=== PATIENT | female | born 1965 | race Caucasian/White ===

== ENCOUNTER 2017-05-12 08:07 | Day surgery (SDC) | payer OTHER ==
[~2017-05-12] VITALS: Ht 154.9 cm; Wt 57.1 kg
[~2017-05-12 08:07] MED LIST: ALBU90OI61 INH; BENZ100A PO; BUPR150T2; CLON.5 PO; ESTR2 PO; GUAI120S1 PO; HYDACE5; IBUP800 PO; MIRT15 PO; OXYACE5T PO; PENVK500 PO; RXOXYACE PO; RXPENVK250 PO; Zofran Odt4 MG SL
[2018-03-08] MEDS ORDERED: Zantac150 MG PO (06:13)
[2018-03-08] MEDS ORDERED: Percocet 5-3251 EACH PO (10:42)
== END 2017-05-12 10:32 | disposition home or self-care (01) ==
LOC: ORSCMMR 08:07
PROVIDERS: Internal Medicine Gastroenterology
PROC: 0DB48ZX Excision of Esophagogastric Junction, Via Natural or Artificial Opening Endoscopic, Diagnostic (ICD-10-PCS; principal; 2017-05-12 09:30)
PROC: 0DB68ZX Excision of Stomach, Via Natural or Artificial Opening Endoscopic, Diagnostic (ICD-10-PCS; principal; 2017-05-12 09:30)
DX: R93.5 Abnormal findings on diagnostic imaging of other abdominal regions, including retroperitoneum (principal); K44.9 Diaphragmatic hernia without obstruction or gangrene; K29.70 Gastritis, unspecified, without bleeding; R10.9 Unspecified abdominal pain; F41.8 Other specified anxiety disorders; F17.210 Nicotine dependence, cigarettes, uncomplicated; Z79.899 Other long term (current) drug therapy
CPT/HCPCS: 88305; 88341; 88342; J7120

== ENCOUNTER 2018-11-26 11:00 | Emergency (ER) | payer OTHER ==
[~2018-11-26] VITALS: Ht 154.9 cm; Wt 52.2 kg
[~2018-11-26 11:00] MED LIST changes: +Percocet 5-3251 EACH PO; +Zantac150 MG PO
[2018-11-26 12:33] LABS: BASOPHILS ABSOLUTE AUTO 0.02 K/mm3 (0.00-0.23); BASOPHILS PERCENT AUTO 0 % (0-2); EOSINOPHILS ABSOLUTE AUTO 0.02 K/mm3 (0.00-0.68); EOSINOPHILS PERCENT AUTO 0 % (0-6); Hematocrit 46.2 % (33.0-51.0); Hemoglobin 16.4 g/dL (11.5-16.0); IMMATURE GRAN ABSOLUTE AUTO 0.02 K/mm3 (0.00-0.10); IMMATURE GRAN PERCENT AUTO 0 % (0-1); LYMPHOCYTES ABSOLUTE AUTO 1.25 K/mm3 (0.84-5.20); LYMPHOCYTES PERCENT AUTO 20 % (21-46); MONOCYTES ABSOLUTE AUTO 0.61 K/mm3 (0.16-1.47); MONOCYTES PERCENT AUTO 10 % (4-13); Mean Corpuscular HGB 35.7 pg (26.0-34.0); Mean Corpuscular HGB Conc 35.5 g/dL (31.5-36.5); Mean Corpuscular Volume 101 fL (80-100); Mean Platelet Volume 10.7 fL (9.1-12.4); NEUTROPHILS ABSOLUTE AUTO 4.44 K/mm3 (1.96-9.15); NEUTROPHILS PERCENT AUTO 70 % (41-73); Platelet Count 228 K/mm3 (150-400); RDW Coefficient Variation 13.3 % (11.7-14.2); RDW Standard Deviation 49.8 fL (35.1-46.3); Red Blood Cell Count 4.59 M/mm3 (3.80-5.20); White Blood Cell Count 6.36 K/mm3 (4.00-11.30)
[2018-11-26 13:05] LABS: Alanine Aminotransfer (ALT/SGP 51 U/L (12-78); Albumin, Blood 3.9 g/dL (3.4-5.0); Alk Phos 108 U/L (50-136); Anion Gap 5 mmol/L (6-16); Aspartate Aminotrans (AST/SGOT 41 U/L (12-37); Bilirubin, Total 0.5 mg/dL (0.1-1.0); Blood Urea Nitrogen 7 mg/dL (8-24); CO2, Blood 28 mmol/L (21-32); Calcium, Blood 9.6 mg/dL (8.5-10.1); Chloride, Blood 100 mmol/L (98-108); Creatinine, Blood 0.37 mg/dL (0.40-1.00); Globulin, Blood 3.8 g/dL (2.2-4.0); Glomerular Filtration Rate >60 (60-); Glucose, Blood 89 mg/dL (70-99); Potassium, Blood 4.1 mmol/L (3.5-5.5); Sodium, Blood 133 mmol/L (136-145); Total Protein, Blood 7.7 g/dL (6.4-8.2); Troponin I <0.015 ng/mL (0.000-0.040)
[2018-11-26] MEDS ORDERED: IBUP400 PO (14:29)
[2018-11-26] MEDS ORDERED: CYCL10 PO (14:29)
== END 2018-11-26 15:31 | disposition home or self-care (01) ==
LOC: ER 11:00
PROVIDERS: Physician Assistant
DX: S82.035A Nondisplaced transverse fracture of left patella, initial encounter for closed fracture (principal); F41.9 Anxiety disorder, unspecified; F32.9 Major depressive disorder, single episode, unspecified; Z79.899 Other long term (current) drug therapy; W19.XXXA Unspecified fall, initial encounter
CPT/HCPCS: 29505; 36415; 73564; 80053; 84484; 85025; 90471; 90714; 93005; 93010; 93225; 93226; 99284-25; A9270-GY

== ENCOUNTER 2019-02-15 08:40 | Day surgery (SDC) | payer OTHER ==
[~2019-02-15 08:40] MED LIST changes: +CYCL10 PO; +IBUP400 PO
[2019-03-22] MEDS ORDERED: ALBU90OI (12:56)
== END 2019-02-15 22:55 | disposition home or self-care (01) ==
LOC: MOI US 08:40 → MOI MAM 09:15 → MOI US 22:55
DX: C50.912 Malignant neoplasm of unspecified site of left female breast (principal); Z17.0 Estrogen receptor positive status [ER+]
CPT/HCPCS: 19083; 77065; 88305; 88360; A4648

== ENCOUNTER 2019-03-29 07:25 | Day surgery (SDC) | payer OTHER ==
[~2019-03-29 07:25] MED LIST changes: +ALBU90OI
== END 2019-03-29 22:57 | disposition home or self-care (01) ==
LOC: MOI US 07:25
DX: C50.812 Malignant neoplasm of overlapping sites of left female breast (principal)
CPT/HCPCS: 19285; 77065

== ENCOUNTER 2019-04-02 07:09 | Day surgery (SDC) | payer OTHER ==
[~2019-04-02] VITALS: Ht 154.9 cm; Wt 50.9 kg
--- NOTE | 2019-04-02 11:17 | NUR ---
04/02/19 1117 Dany Mcelroy FROM XRAY CALLED STATING THAT DR. VITALE VERIFIED CLIP IS IN SPECIMEN.
== END 2019-04-02 12:57 | disposition home or self-care (01) ==
LOC: ORSCSDS 07:09 → NM 09:30 → ORSCSDS 10:30
PROVIDERS: Surgery
PROC: 07B60ZX Excision of Left Axillary Lymphatic, Open Approach, Diagnostic (ICD-10-PCS; principal; 2019-04-02 10:30)
PROC: 0HBU0ZZ Excision of Left Breast, Open Approach (ICD-10-PCS; principal; 2019-04-02 10:30)
DX: C50.812 Malignant neoplasm of overlapping sites of left female breast (principal); Z17.0 Estrogen receptor positive status [ER+]; D36.0 Benign neoplasm of lymph nodes; J44.9 Chronic obstructive pulmonary disease, unspecified; F17.210 Nicotine dependence, cigarettes, uncomplicated; Z79.899 Other long term (current) drug therapy
CPT/HCPCS: 38792; 76098; 88305; 88307; 88342; A9520; J0330; J0690; J1100; J2250; J2370; J2405; J2704; J3010; J7120; Q9968

== ENCOUNTER 2020-12-19 15:05 | Inpatient (IN) | payer OTHER ==
[~2020-12-19] VITALS: Ht 154.9 cm; Wt 51.1 kg
[2020-12-19] MEDS ORDERED: PARO10 PO (15:32)
[2020-12-19 15:47] LABS: BASOPHILS ABSOLUTE AUTO 0.05 K/mm3 (0.00-0.23); BASOPHILS PERCENT AUTO 0 % (0-2); EOSINOPHILS ABSOLUTE AUTO 0.02 K/mm3 (0.00-0.68); EOSINOPHILS PERCENT AUTO 0 % (0-6); Hematocrit 43.6 % (33.0-51.0); Hemoglobin 15.8 g/dL (11.5-16.0); IMMATURE GRAN ABSOLUTE AUTO 0.14 K/mm3 (0.00-0.10); IMMATURE GRAN PERCENT AUTO 1 % (0-1); LYMPHOCYTES ABSOLUTE AUTO 1.46 K/mm3 (0.84-5.20); LYMPHOCYTES PERCENT AUTO 11 % (21-46); MONOCYTES ABSOLUTE AUTO 1.21 K/mm3 (0.16-1.47); MONOCYTES PERCENT AUTO 9 % (4-13); Mean Corpuscular HGB 35.4 pg (26.0-34.0); Mean Corpuscular HGB Conc 36.2 g/dL (31.5-36.5); Mean Corpuscular Volume 98 fL (80-100); Mean Platelet Volume 10.2 fL (9.1-12.4); NEUTROPHILS ABSOLUTE AUTO 10.58 K/mm3 (1.96-9.15); NEUTROPHILS PERCENT AUTO 79 % (41-73); Platelet Count 294 K/mm3 (150-400); RDW Coefficient Variation 13.9 % (11.7-14.2); RDW Standard Deviation 50.4 fL (35.1-46.3); Red Blood Cell Count 4.46 M/mm3 (3.80-5.20); White Blood Cell Count 13.46 K/mm3 (4.00-11.30)
[2020-12-19 16:02] LABS: Alanine Aminotransfer (ALT/SGP 103 U/L (12-78); Albumin, Blood 3.7 g/dL (3.4-5.0); Alk Phos 107 U/L (50-136); Anion Gap 7 mmol/L (6-16); Aspartate Aminotrans (AST/SGOT 138 U/L (12-37); Bilirubin, Total 0.4 mg/dL (0.1-1.0); Blood Urea Nitrogen 5 mg/dL (8-24); Bun/Creatinine Ratio 9.1 (12.0-20.0); CO2, Blood 28 mmol/L (21-32); Calcium, Blood 8.7 mg/dL (8.5-10.1); Chloride, Blood 98 mmol/L (98-108); Creatinine, Blood 0.55 mg/dL (0.40-1.00); Globulin, Blood 3.6 g/dL (2.2-4.0); Glomerular Filtration Rate >60 (60-); Glucose, Blood 97 mg/dL (70-99); Potassium, Blood 3.9 mmol/L (3.5-5.5); Sodium, Blood 133 mmol/L (136-145); Total Protein, Blood 7.3 g/dL (6.4-8.2)
[2020-12-19] MEDS ORDERED: LETR2.5 PO (19:10)
[2020-12-19 19:57] LABS: SARS-Cov-2 (COVID-19) PCR, MMC NEGATIVE (NEGATIVE)
[2020-12-19 20:02] LABS: Ethanol (Alcohol), Blood, Med 207 mg/dL
[2020-12-19 21:17] LABS: International Normalized Ratio 0.91; Prothrombin Time Results 9.9 Sec (9.7-11.5)
[2020-12-20 03:09] LABS: Source, Urine Clean Catch
[2020-12-20 03:13] LABS: Bilirubin, Urine Neg (Neg); Blood, Urine 1+ (Neg); Glucose Qualitative, Urine Neg (Neg); Ketones, Urine 2+ (Neg); Leukocyte Esterase, Urine 1+ (Neg); Nitrite, Urine Neg (Neg); Protein, Urine 1+ (Neg); Urobilinogen, Urine NORM (Normal); pH, Urine 6.5 (5.0-8.0)
[2020-12-20 03:28] LABS: U Amphetamine Screen Not Detected; U Barbituate Screen Not Detected; U Benzodiazapine Screen Not Detected; U Buprenorphine Screen Not Detected; U Cannabinoids Screen DETECTED; U Cocaine Screen Not Detected; U Methadone Screen Not Detected; U Methamphetamine Screen Not Detected; U Opiates Screen DETECTED; U Oxycodone Screen Not Detected; U Phencyclidine Screen Not Detected; U Propoxyphene Screen Not Detected
[2020-12-20 03:31] LABS: Appearance, Urine Clear (Clear); Bacteria Rare /hpf; Color, Urine Yellow (P-Yellow); Red Blood Cells, Urine Rare /hpf (0-2); Squamous Epithelial Cells Few /hpf (Few); White Blood Cells, Urine 0-2 /hpf (0-5)
[2020-12-20 04:09] LABS: Hematocrit 44.3 % (33.0-51.0); Hemoglobin 15.8 g/dL (11.5-16.0); Mean Corpuscular HGB 35.3 pg (26.0-34.0); Mean Corpuscular HGB Conc 35.7 g/dL (31.5-36.5); Mean Corpuscular Volume 99 fL (80-100); Mean Platelet Volume 10.5 fL (9.1-12.4); Platelet Count 284 K/mm3 (150-400); RDW Standard Deviation 51.3 fL (35.1-46.3); Red Blood Cell Count 4.48 M/mm3 (3.80-5.20); White Blood Cell Count 8.49 K/mm3 (4.00-11.30)
[2020-12-20 04:28] LABS: Anion Gap 7 mmol/L (6-16); Blood Urea Nitrogen 6 mg/dL (8-24); Bun/Creatinine Ratio 12.9 (12.0-20.0); CO2, Blood 28 mmol/L (21-32); Calcium, Blood 8.5 mg/dL (8.5-10.1); Chloride, Blood 100 mmol/L (98-108); Creatinine, Blood 0.47 mg/dL (0.40-1.00); Glomerular Filtration Rate >60 (60-); Glucose, Blood 96 mg/dL (70-99); Magnesium, Blood 2.4 mg/dL (1.6-2.4); Potassium, Blood 4.1 mmol/L (3.5-5.5); Sodium, Blood 135 mmol/L (136-145)
--- NOTE | 2020-12-20 07:16 | NUR ---
PT IS A/OX3. ABLE TO MAKE HIS NEEDS KNOWN. PLEASANT AND COOPERATIVE WITH STAFF AND HER CARE. ARRIVED TO FLOOR AT 199912/19/20. PT ORIENTED TO STAFF, ROOM, CALL LIGHT. TELE: SR. CT SET TO LIS, PLACED ON FLOOR-SECURED W/TAPE. NO OUTPUT. BUBBLING. CT INSERTION SITE INTACT WITH MINIMAL BLOODY DRNG. OXYGEN PER NC, AT 5L; SHE DID SAT 87-88% ON 2L, SO BUMPED UP TO 5L.
--- NOTE | 2020-12-21 07:03 | NUR ---
PT IS A/OX4. ABLE TO MAKE HER NEEDS KNOWN. PLEASANT AND COOPERATIVE WITH STAFF AND HER CARE. TELE: SR. CBS, BUT DIMINISHED. CHEST TUBE TO LOW SUCTION. BUBBLES. CANNISTER SECURED W/TAPE TO FLOOR. NO DRNG IN CANNISTER. INSERTION SITE TO LEFT CHEST, ABOVE BREAST. INSERTION SITE COVERED W/CLEAR DRSG AND IS CDI. PIV TO LAC PATENT. USES BEDPAN. NO GI UPSET.
--- NOTE | 2020-12-22 18:38 | NUR ---
SHIFT SUMMARY PATIENT AOX4 ADMITTED WITH MULT RIB FX AND PNEUMOTHORAX. VSS; PATIENT WEANED DOWN TO 0.5L O2 BY END OF SHIFT; PATIENT UP WITH THEAPY ON SHIFT, GOOD U/O. PAIN CONTROLLED WITH IV DILAUDID, OXY AND TORADOL.
--- NOTE | 2020-12-23 04:48 | NUR ---
SHIFT SUMMARY PT AOX4. PT REPORTS R SIDE NECK (MUSCLE) PAIN AND H/A AT THE BEGINNING OF THE SHIFT. OFFERED K-PAD FOR HER NECK AND PAIN IMPROVED. PT REPORTS PAIN MEDS DOES NOT HELP WITH NECK PAIN. PT ALSO REPORTS L SIDE RIB PAIN BUT HAS BEEN TOLERABLE, PAIN LEVEL 7-10/10 PAIN LEVEL. PAIN MANAGED WITH TORADOL X1 (HS), 10MG OXY AND TYLENOL. VSS. VOIDING WITHOUT DIFFICULTY. PT DENIES CP, SOB. WEAN OFF O2. SATURATING AT 94% AT ROOM AIR. PT TOLERATING PO INTAKE. DENIES NAUSEA AND VOMITING. CALL LIGHT WITHIN REACH. WILL PROVIDE REPORT TO ONCOMING NURSE.
[2020-12-23] MEDS ORDERED: OXYC10TA19 PO (11:09)
--- NOTE | 2020-12-23 12:19 | NUR ---
SHIFT SUMMARY PT A&OX4, VSS, ADRI PO, VOIDING WELL, AMBULATING TO BRP/HALLWAY, UP TO CHAIR, DEEP BREATHING AND I.S. EDU & ENC/DEMONSTRATED-EDU TO CONTINUE AT HOME. LEFT FLOOR VIA WC WITH NG TO GO HOME WITH , WITH ALL PERSONAL POSSESSIONS INCLUDING DC PACKET AND NARC SCRIPT. IV DC'D.
== END 2020-12-23 12:30 | disposition home or self-care (01) | DRG 200 ==
LOC: ER 15:05 → SURS 18:41
PROVIDERS: Emergency Medicine; Physician Assistant; ADMIT Surgery
PROC: 0W9B30Z Drainage of Left Pleural Cavity with Drainage Device, Percutaneous Approach (ICD-10-PCS; principal; 2020-12-19)
DX: S27.0XXA Traumatic pneumothorax, initial encounter (principal); S22.42XA Multiple fractures of ribs, left side, initial encounter for closed fracture; W14.XXXA Fall from tree, initial encounter; Z79.899 Other long term (current) drug therapy; F17.210 Nicotine dependence, cigarettes, uncomplicated; Z20.822 Contact with and (suspected) exposure to COVID-19; Z98.890 Other specified postprocedural states; Z90.12 Acquired absence of left breast and nipple; Z85.3 Personal history of malignant neoplasm of breast; Z85.810 Personal history of malignant neoplasm of tongue; Z90.710 Acquired absence of both cervix and uterus; Z90.721 Acquired absence of ovaries, unilateral
CPT/HCPCS: 32551; 36415; 70450; 71045; 71046; 71260; 74177; 80048; 80053; 81001; 83690; 83735; 85025; 85027; 85610; 90471; 90714; 94762; 96374-59; 96375-59; 96376-59; 97110; 97116; 97116-CQ; 97162; 97167; 97530; 97530-CQ; 97535; 99285-25; A9270; G0480; J1170; J1650; J1885; J2405; J3010; Q9967; U0004

== ENCOUNTER 2021-06-29 17:25 | Emergency (ER) | payer OTHER ==
[~2021-06-29] VITALS: Ht 154.9 cm; Wt 50.4 kg
[~2021-06-29 17:25] MED LIST changes: +LETR2.5 PO; +OXYC10TA19 PO; +PARO10 PO
== END 2021-06-29 18:50 | disposition home or self-care (01) ==
LOC: ER 17:25
DX: S52.501A Unspecified fracture of the lower end of right radius, initial encounter for closed fracture (principal); S52.601A Unspecified fracture of lower end of right ulna, initial encounter for closed fracture; F17.210 Nicotine dependence, cigarettes, uncomplicated; W01.0XXA Fall on same level from slipping, tripping and stumbling without subsequent striking against object, initial encounter
CPT/HCPCS: 29125; 73110; 99283-25; A9270

== ENCOUNTER 2022-11-09 23:30 | Emergency (ER) | payer OTHER ==
[~2022-11-09] VITALS: Ht 154.9 cm; Wt 54.4 kg
[2022-11-10] VITALS: BP 120/91
== END 2022-11-10 00:25 | disposition home or self-care (01) ==
LOC: ER 23:30
DX: S80.812A Abrasion, left lower leg, initial encounter (principal); S80.811A Abrasion, right lower leg, initial encounter; F17.210 Nicotine dependence, cigarettes, uncomplicated; W19.XXXA Unspecified fall, initial encounter
CPT/HCPCS: 99282

== ENCOUNTER → 2022-12-31 | Outpatient (CLI) | payer OTHER ==
[2022-12-31 13:08] LABS: Source, Urine Clean Catch
[2022-12-31 15:43] LABS: Appearance, Urine Clear (Clear); Bilirubin, Urine Neg (Neg); Blood, Urine Neg (Neg); Glucose Qualitative, Urine Neg (Neg); Ketones, Urine Neg (Neg); Leukocyte Esterase, Urine Neg (Neg); Nitrite, Urine Neg (Neg); Protein, Urine Neg (Neg); Urobilinogen, Urine NORM (Normal)
[2022-12-31 16:12] LABS: Color, Urine Pale Yellow (P-Yellow)
== END | disposition home or self-care (01) ==
LOC: LAB 11:15 → LAB SHORT 11:15
PROVIDERS: Internal Medicine Hematology & Oncology
DX: R30.0 Dysuria (principal)
CPT/HCPCS: 81003

== ENCOUNTER → 2023-07-08 | Outpatient (CLI) | payer OTHER | END | disposition home or self-care (01) | LOC: LAB SHORT 11:40 → LAB 11:40 | DX: L60.3 Nail dystrophy (principal) | CPT/HCPCS: 87102 ==

== ENCOUNTER 2024-04-05 07:53 | Day surgery (SDC) | payer OTHER | END 2024-04-05 23:00 | disposition home or self-care (01) | LOC: CT 07:53 | DX: I47.29 Other ventricular tachycardia (principal); F17.210 Nicotine dependence, cigarettes, uncomplicated; Z79.899 Other long term (current) drug therapy; Z88.0 Allergy status to penicillin | CPT/HCPCS: 75574; Q9967 ==